=== PATIENT | male | born 1990 ===

== ENCOUNTER 2016-07-20 01:31 | Emergency (ER) | payer BC ==
[2016-07-20 02:00] VITALS: BP 144/75; PULSE 105; RESP 16; TEMP 99.3; O2SAT 98
--- NOTE | 2016-07-20 02:12 | ED PDOC ---
HPI: Wound Care - HPI Time Seen by Provider: 07/20/16 01:36 Chief Complaint (Nursing): Abnormal Skin Integrity Chief Complaint (Provider): Abnormal Skin Integrity History Per: Patient Exam Limitations: no limitations Onset/Duration Of Symptoms: Days (yesterday) Current Symptoms Are (Timing): Still Present Location Of Injury: Left: Buttock Quality Of Symptoms: Painful, Draining Severity: Moderate Additional Complaint(s): Donaldo Ruiz is a 25 y/o male, with no pertinent past medical history, who presents to the emergency department with complaints of pain to his left buttock , (first episode ever)that the patient has been experiencing since yesterday. Patient reports taking Advil prior to arrival; however, it only provided minimal relief, prompting his visit to the emergency department. pt denies fever /chills Of note, patient has no known drug allergies. PMD: none specified Past Medical History Reviewed: Historical Data, Nursing Documentation, Vital Signs Vital Signs: Last Vital Signs Temp 99.3 F 07/20/16 01:33 Pulse 105 H 07/20/16 01:33 Resp 16 07/20/16 01:33 BP 144/75 07/20/16 01:33 Pulse Ox 98 07/20/16 01:33 - Medical History PMH: No Chronic Diseases - Surgical History Surgical History: No Surg Hx - Family History Family History: States: No Known Family Hx - Social History Current smoker - smoking cessation education provided: No Alcohol: None Drugs: Cannabis, Cocaine, Methamphetamine - Home Medications Home Medications: Ambulatory Orders Medication Instructions Recorded Sulfamethoxazole/Trimethoprim 1 tab PO BID #14 tab 07/20/16 [Bactrim DS 800 mg-160 mg] - Allergies Allergies/Adverse Reactions: Allergies Allergy/AdvReac Type Severity Reaction Status Date / Time No Known Allergies Allergy Verified 07/20/16 01:33 Review of Systems ROS Statement: Except As Marked, All Systems Reviewed And Found Negative Musculoskeletal: Positive for: Other (left buttock pain) Physical Exam - Reviewed Nursing Documentation Reviewed: Yes Vital Signs Reviewed: Yes - Physical Exam Appears: Positive for: Non-toxic, No Acute Distress Head Exam: Positive for: ATRAUMATIC, NORMAL INSPECTION, NORMOCEPHALIC Skin: Positive for: Normal Color Neck: Positive for: Normal, Painless ROM, Supple Cardiovascular/Chest: Positive for: Regular Rate, Rhythm. Negative for: Edema Respiratory: Positive for: Normal Breath Sounds. Negative for: Crackles, Rhonchi Gastrointestinal/Abdominal: Positive for: Normal Exam, Soft. Negative for: Tenderness Back: Positive for: Normal Inspection. Negative for: L CVA Tenderness, R CVA Tenderness, Vertebral Tenderness Rectal: Positive for: Normal Exam, Other (pilonidal cyst, fluctuance w/ minimal drainage) Extremity: Positive for: Normal ROM. Negative for: Tenderness Neurologic/Psych: Positive for: Alert, monologist II-XII, Oriented - ECG O2 Sat by Pulse Oximetry: 98 (RA) Pulse Ox Interpretation: Normal Medical Decision Making Medical Decision Makin:36 Initial Impression: Pilonidal cyst Initial Plan: * Reevaluation 02:00 Provider recommended an I&D procedure to help accelerate patient's pilonidal cyst drainage; however, the patient refused and was prompted to excessively soak the site of fluctuance and take warm baths . pt verbalizes understanding of refusing I ad D in the ER. RX bactrim 02:10 Upon provider reevaluation patient is medically stable and requires no further treatment in the emergency department at this time. Patient will be discharged home with a prescription for antibiotics. Counseling was provided, all questions were answered regarding diagnosis, and patient was advised to followup with his primary medical doctor in 1-2 days. Patient is in agreement with provider's discharge plan and was prompted to return if symptoms persist or worsen. Clinical Impression: Pilonidal cyst Scribe Attestation: Documented by Jose Elias Hoffmann, acting as a scribe for Yobani Browning MD. Provider Scribe Attestation: All medical record entries made by the Scribe were at my direction and personally dictated by me. I have reviewed the chart and agree that the record accurately reflects my personal performance of the history, physical exam, medical decision making, and the department course for this patient. I have also personally directed, reviewed, and agree with the discharge instructions and disposition. Disposition - Clinical Impression Clinical Impression: Pilonidal cyst - Patient ED Disposition Is Patient to be Admitted: No Doctor Will See Patient In The: ED Counseled Patient/Family Regarding: Diagnosis, Rx Given - Disposition Referrals: [facility] [Outside] [facility] [Outside] Disposition: Routine/Home Disposition Time: 02:10 Condition: STABLE Additional Instructions: follow up with your primary doctor in 2 days return to the ED with any worsening or concerning symptoms. apply warm compresses to area take motrin for pain Prescriptions: Sulfamethoxazole/Trimethoprim [Bactrim DS 800 mg-160 mg] 1 tab PO BID #14 tab Instructions: Abscess (ED)
== END 2016-07-20 02:14 | disposition home or self-care (01) ==
LOC: H.ER 01:31
DX: L05.91 Pilonidal cyst without abscess (principal)